=== PATIENT | female | born 1975 | race Caucasian/White ===

== ENCOUNTER 2017-11-17 10:10 | Outpatient (RCR) | payer MEDICAID | END 2018-01-09 | disposition home or self-care (01) | LOC: CR 10:10 | PROVIDERS: ATTEND Internal Medicine Interventional Cardiology | DX: Z48.812 Encounter for surgical aftercare following surgery on the circulatory system (principal); Z95.5 Presence of coronary angioplasty implant and graft | CPT/HCPCS: 93798 ==

== ENCOUNTER 2021-03-14 13:12 | Emergency (ER) | payer SELFPAY ==
[~2021-03-14] VITALS: Ht 162.6 cm; Wt 81.6 kg
--- OUTSIDE RECORDS SUMMARY | 2021-03-14 13:16 | XMS REPORT | Clinical Summary ---
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 If you d o not see the information that you expected, contact Release of Information in [facility] [employer] department at [phone] for further assistan ce in locating additional records.[facility] Allergies Comments Active Allergy Reactions Severity Noted Date Mother was allergic, so patient wants it listed as an allergy Penicillins SEE COMMENTS Low 06/27/2017 Medications End Date Status Medication Sig Dispensed Refills Start Date Active duloxetine DR (CYMBALTA) Take 30 mg by 0 30 mg capsule mouth daily. Total daily dose of 90mg. Active duloxetine DR (CYMBALTA) Take 60 mg by 0 60 mg capsule mouth daily. Total daily dose of 90mg. Active ALPRAZolam (XANAX) 0.5 mg Take 0.5 mg 0 tablet by mouth twice daily as needed for Anxiety. Active zolpidem (AMBIEN) 10 mg Take 10 mg by 0 tablet mouth at bedtime as needed for Sleep. Active vitamins, multiple tablet Take 1 tablet 0 by mouth daily. Active varenicline (CHANTIX) 0.5 Take one pill 10 tablet 0 mg tabIndications: per day for 2 8 smoking cessation more days, then one pill twice daily x4 days Indications: SMOKING CESSATION Active nitroglycerin (NITROSTAT) Place 1 25 tablet 3 0.4 mg tablet tablet under 8 tongue every 5 minutes as needed for Chest Pain. Max of 3 tablets, call 911. Active varenicline (CHANTIX) 1 Take 1 tablet 56 tablet 3 mg tablet by mouth 8 twice daily. Active varenicline (CHANTIX KEE) Take 0.5mg by 53 tablet 0 0.5 mg (11)- 1 mg (42) mouth daily 8 tablet for 3 days, then increase to 0.5mg by mouth twice daily for 4 days, then increase to 1mg by mouth twice daily Active senna (SENNA) 8.6 mg Take two 90 tablet 3 03/15 tablet tablets by 8 mouth at bedtime as needed for Constipation. Active aspirin EC 81 mg tablet Take one 90 tablet 3 tablet by 8 mouth daily. Take with food. Active atorvastatin (LIPITOR) 80 Take one 90 tablet 3 mg tablet tablet by 8 mouth daily. Active carvedilol (COREG) 12.5 Take one 180 tablet 3 mg tablet tablet by 8 mouth twice daily. Take with food. Active clopiDOGrel (PLAVIX) 75 TAKE 1 TABLET 90 tablet 1 mg tablet BY MOUTH ONCE 9 DAILY Active Problems Problem Noted Date Coronary artery disease involving ione coronary art brenda of ione heart 06/28/2017 Overview: Formatting of this note might be differ ent from the original. 06/27/17: STEMI/Cath - Hazy mid RCA lesio n, which based on OCT assessment demonstrated plaque rupture & acute thr ombus formation consistent with the culprit lesion for the inferior ST elev ations. Successful PCI of the large caliber mid right coronary artery with a 4.0 x 23 mm Xience Alpine drug-eluting stent Tobacco use disorder 06/28/2017 Mixed hyperlipidemia 06/28/2017 Obesity 06/28/2017 STEMI (ST elevation myocardial infarction) 8 Family History Medical History Relation Name Comments Cancer Father Coronary Artery Disease Father Pacemaker Father Renal problems Father Coronary Artery Disease Mother Heart Attack Mother Premature Heart Disease Mother Relation Name Status Comments Brother Alive Father Mother (Age 47) Social History Date Tobacco Use Types Packs/Day Years Used Current Every Day Smoker Cigarettes 0.5 29 Smokeless Tobacco: Never Used Comments Alcohol Use Standard Drinks/Week occas Yes 0 (1 standard drink = 0.6 o z pure alcohol) Alcohol Habits Answer Date Recorded How often do you have a drink containing alcohol? No t asked How many drinks containing alcohol do you have on No t asked a typical day when you are drinking? How often do you have six or more drinks on one Not asked occasion? Comment: silviano 08/23/2017 Sex Assigned at Date Recorded Not on file Last Filed Vital Signs Reading Time Taken Comments Vital Sign 122/76 03/15/2018 11:26 AM CDT Blood Pressure 85 03/15/2018 11:26 AM CDT Pulse 36.8 C (98.3 F) 06/28/2017 12:00 PM ARTS THERAPIST Temperature - - Respiratory Rate 98% 08/23/2017 10:17 AM ARTS THERAPIST Oxygen Saturation - - Inhaled Oxygen Concentration 95.5 kg (210 lb 8 oz) 03/15/2018 11:26 AM CDT Weight 162.6 cm (5' 4") 03/15/2018 11:26 AM CDT Height 36.13 03/15/2018 11:26 AM CDT Body Mass Index Plan of Treatment Health Maintenance Due Date Last Done Comments HIV SCREENING 1990 DTAP/TDAP VACCINES ( - 1993 Tdap) HEPATITIS C SCREENING 1993 PHYSICAL (COMPREHENSIVE) 1993 EXAM CERVICAL CANCER SCREENING 07/15/2013 07/15/2010 BREAST CANCER SCREENING 2015 INFLUENZA VACCINE 01/19/2021 Results Not on filefrom Last 3 Months Advance 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
[2021-03-14 13:20] VITALS: BP 121/72
--- NOTE | 2021-03-14 13:36 | ED General ---
General Chief Complaint: General Problems/Pain Stated Complaint: RT UPPR BODY/ARM PAIN Source of Information: Patient Exam Limitations: No Limitations History of Present Illness Date Seen by Provider: Mar 14, 2021 Time Seen by Provider: 13:15 Initial Comments Patient is a 46-year-old female with history of polysubstance abuse who presents with right arm redness swelling after injecting methamphetamines 1 week ago. She reports subjective fevers chills, urinary urgency frequency and dysuria. No nausea vomiting or sweats. No chest pain palpitations. No shortness of breath. No abdominal pain. No other acute symptoms or complaints. Patient has not been evaluated for this condition prior to today's ED visit Timing/Duration: 5-6 Days Severity: Moderate Modifying Factors: improves with Other Associated Systoms: Other Allergies and Home Medications Allergies Coded Allergies: Penicillins (Verified Allergy, Unknown, 03/14/21) morphine (Verified Allergy, Unknown, 03/14/21) Patient Home Medication List Home Medication List Reviewed: Yes Review of Systems Review of Systems Constitutional: see HPI EENTM: see HPI Respiratory: see HPI Cardiovascular: see HPI Gastrointestinal: see HPI Genitourinary: see HPI Musculoskeletal: see HPI Skin: see HPI Psychiatric/Neurological: See HPI Hematologic/Lymphatic: See HPI All Other Systems Reviewed Negative Unless Noted: Yes Past [id number] Hx Patient Social History Tobacco Use?: Yes Physical Exam Vital Signs Capillary Refill : Height, Weight, BMI Height: '" Weight: lbs. oz. kg; BMI Method: General Appearance: No Apparent Distress, WD/WN, Anxious Eyes: Bilateral Eye Normal Inspection, Bilateral Eye PERRL, Bilateral Eye EOMI HEENT: PERRL/EOMI, Normal ENT Inspection Neck: Normal Inspection, Non Tender, Supple Respiratory: Lungs Clear Cardiovascular: Regular Rate, Rhythm, No Gallop Gastrointestinal: Non Tender, Soft Back: Normal Inspection Neurologic/Psychiatric: Alert, Oriented x3, No Motor/Sensory Deficits Skin: Other (Right arm cellulitis) Focused Exam Sepsis Stage: Ruled Out Progress/Results/Core Measures Suspected Sepsis SIRS Temperature: Pulse: Respiratory Rate: Laboratory Tests 03/14/21 14:05: White Blood Count 12.9H Blood Pressure / Mean: Laboratory Tests 03/14/21 14:05: Platelet Count 239 Results/Orders Lab Results Laboratory Tests Test 03/14/21 13:25 9/24/21 14:05 Range/Units Urine Color DARK YELLOW Urine Clarity TURBID Urine pH 5.0 5-9 Urine Specific Emma 1.025 H 1.016-1.022 Urine Protein TRACE H NEGATIVE Urine Glucose (UA) TRACE H NEGATIVE Urine Ketones NEGATIVE NEGATIVE Urine Nitrite NEGATIVE NEGATIVE Urine Bilirubin 2+ H NEGATIVE Urine Urobilinogen 4.0 < = 1.0 MG/DL Urine Leukocyte Esterase NEGATIVE NEGATIVE Urine RBC (Auto) NEGATIVE NEGATIVE Urine RBC RARE /HPF Urine WBC 2-5 /HPF Urine Squamous Epithelial Cells 5-10 /HPF Urine Crystals NONE /LPF Urine Bacteria MODERATE H /HPF Urine Casts NONE /LPF Urine Mucus SMALL H /LPF Urine Culture Indicated YES Urine Opiates Screen NEGATIVE NEGATIVE Urine Oxycodone Screen NEGATIVE NEGATIVE Urine Methadone Screen NEGATIVE NEGATIVE Urine Propoxyphene Screen NEGATIVE NEGATIVE Urine Barbiturates Screen NEGATIVE NEGATIVE Ur Tricyclic Antidepressants Screen NEGATIVE NEGATIVE Urine Phencyclidine Screen NEGATIVE NEGATIVE Urine Amphetamines Screen POSITIVE H NEGATIVE Urine Methamphetamines Screen POSITIVE H NEGATIVE Urine Benzodiazepines Screen NEGATIVE NEGATIVE Urine Cocaine Screen NEGATIVE NEGATIVE Urine Cannabinoids Screen POSITIVE H NEGATIVE White Blood Count 12.9 H 4.3-11.0 10^3/uL Red Blood Count 4.37 3.80-5.11 10^6/uL Hemoglobin 14.2 11.5-16.0 g/dL Hematocrit 41 35-52 % Mean Corpuscular Volume 94 80-99 fL Mean Corpuscular Hemoglobin 32 25-34 pg Mean Corpuscular Hemoglobin Concent 35 32-36 g/dL Red Cell Distribution Width 13.1 10.0-14.5 % Platelet Count 239 130-400 10^3/uL Mean Platelet Volume 9.4 9.0-12.2 fL Immature Granulocyte % (Auto) 1 % Neutrophils (%) (Auto) 79 H 42-75 % Lymphocytes (%) (Auto) 14 12-44 % Monocytes (%) (Auto) 5 0-12 % Eosinophils (%) (Auto) 0 0-10 % Basophils (%) (Auto) 0 0-10 % Neutrophils # (Auto) 10.2 H 1.8-7.8 X 10^3 Lymphocytes # (Auto) 1.8 1.0-4.0 X 10^3 Monocytes # (Auto) 0.7 0.0-1.0 X 10^3 Eosinophils # (Auto) 0.0 0.0-0.3 10^3/uL Basophils # (Auto) 0.0 0.0-0.1 10^3/uL Immature Granulocyte # (Auto) 0.1 0.0-0.1 10^3/uL My Orders Orders - XIOMARA MANZANO DO Urinalysis (03/14/21 13:36) Drug Screen Stat (Urine) (03/14/21 13:36) Cbc With Automated Diff (03/14/21 13:36) Comprehensive Metabolic Panel (03/14/21 13:36) Urine Bedside (03/14/21 13:40) Urine Culture (03/14/21 13:25) Doxycycline Hyclate Tablet (Vibramycin T (03/14/21 14:30) Hydrocodone/Apap 5/325 Tablet (Lortab 5 (03/14/21 14:30) Vital Signs/I&O Capillary Refill : Departure Impression Primary Impression: Right forearm cellulitis Disposition: HOME, SELF-CARE Condition: Stable Departure-Patient Inst. Decision time for Depature: 14:35 Referrals: SELF,ELDA HANNAH (PCP/Family) Primary Care Physician Patient Instructions: Cellulitis (Skin Infection), Adult (DC) Add. Discharge Instructions: You were evaluated emergency department for right arm pain tenderness and swelling consistent with cellulitis or skin infection of right arm. Please take antibiotics and pain medications as directed. Follow-up with your therapist for mental health and outpatient drug rehab. Return to the ED if new or worsening symptoms. Follow-up with your PCP in 3 to 5 days for reevaluation. R All discharge instructions reviewed with patient and/or family. Voiced understanding. Scripts Hydrocodone/Acetaminophen (Hydrocodone-Acetamin 5-325 mg) 1 Each Tablet 1 TAB PO Q4H PRN for PAIN-MODERATE (5-7), #10 TAB Prov: XIOMARA MANZANO DO 03/14/21 Doxycycline Hyclate (Doxycycline Hyclate) 100 Mg Tablet 100 MG PO BID, #20 TAB 0 Refills Prov: XIOMARA MANZANO DO 03/14/21 XIOMARA MANZANO DO Mar 14, 2021 13:36
[2021-03-14 13:58] LABS: CLARITY,URINE TURBID; COLOR,URINE DARK YELLOW; GLUCOSE, URINE (UA) TRACE (NEGATIVE); KETONES,URINE NEGATIVE (NEGATIVE); NITRITE,URINE NEGATIVE (NEGATIVE); PROTEIN,URINE TRACE (NEGATIVE)
[2021-03-14 13:59] LABS: BACTERIA,URINE MODERATE /HPF; BILIRUBIN,URINE 2+ (NEGATIVE); LEUKOCYTE ESTERASE ,URINE NEGATIVE (NEGATIVE); RBC,URINE RARE /HPF
[2021-03-14 14:02] LABS: AMPHETAMINE SCREEN, URINE POSITIVE (NEGATIVE); BARBITURATE SCREEN URINE NEGATIVE (NEGATIVE); BENZODIAZEPINES SCREEN URINE NEGATIVE (NEGATIVE); CANNABINOID SCREEN, URINE POSITIVE (NEGATIVE); COCAINE SCREEN URINE NEGATIVE (NEGATIVE); METHADONE STAT NEGATIVE (NEGATIVE); METHAMPHETAMINE SCREEN URINE S POSITIVE (NEGATIVE); OPIATE SCREEN URINE NEGATIVE (NEGATIVE); OXYCODONE STAT NEGATIVE (NEGATIVE); PROPOXYPHENE STAT NEGATIVE (NEGATIVE); TRICYCLIC ANTIDEPRESSANTS SCRE NEGATIVE (NEGATIVE)
[2021-03-14 14:15] LABS: HEMATOCRIT 41 % (35-52); HEMOGLOBIN 14.2 g/dL (11.5-16.0); MEAN CORPUSCULAR HEMOGLOBIN 32 pg (25-34); MEAN CORPUSCULAR HGB CONC 35 g/dL (32-36); MEAN CORPUSCULAR VOLUME 94 fL (80-99); MEAN PLATELET VOLUME 9.4 fL (9.0-12.2); PLATELET COUNT 239 10^3/uL (130-400); WHITE BLOOD COUNT 12.9 10^3/uL (4.3-11.0)
[2021-03-14 14:16] LABS: BASOPHILS % (AUTO) 0 % (0-10); EOSINOPHILS % (AUTO) 0 % (0-10); LYMPHOCYTES % (AUTO) 14 % (12-44); MONOCYTES % (AUTO) 5 % (0-12); NEUTROPHILS # (AUTO) 10.2 X 10^3 (1.8-7.8); NEUTROPHILS % (AUTO) 79 % (42-75)
[2021-03-14 14:17] LABS: LYMPHOCYTES # (AUTO) 1.8 X 10^3 (1.0-4.0); MONOCYTES # (AUTO) 0.7 X 10^3 (0.0-1.0)
[2021-03-14] MEDS ORDERED: DOXYCYCLINE 100 MG (VIBRAMYCIN) TABLET PO ONE (14:30)
[2021-03-14] MEDS ORDERED: HYDROcodone/APAP 5 MG/325 MG (LORTAB) TAB PO ONE (14:30)
[2021-03-14 14:31] LABS: CREATININE SERUM 0.56 MG/DL (0.60-1.30); POTASSIUM 3.6 MMOL/L (3.6-5.0)
[2021-03-14 14:32] LABS: ALBUMIN 3.4 GM/DL (3.2-4.5); BILIRUBIN,TOTAL 1.7 MG/DL (0.1-1.0); CALCIUM 8.7 MG/DL (8.5-10.1); TOTAL PROTEIN 6.6 GM/DL (6.4-8.2)
[2021-03-14] MEDS ORDERED: DOXY100T2 PO (14:37)
[2021-03-14] MEDS ORDERED: ACHD5005 PO (14:37)
== END 2021-03-14 14:53 | disposition home or self-care (01) ==
LOC: EDUNIT# 13:12 → ER FS 13:13
DX: L03.113 Cellulitis of right upper limb (principal)
CPT/HCPCS: 36415; 80053; 80306; 81000; 85025; 87088; 99283

== ENCOUNTER 2022-11-23 01:08 | Emergency (ER) | payer SELFPAY ==
[~2022-11-23 01:08] MED LIST: ACHD5005 PO; DOXY100T2 PO
--- NOTE | 2022-11-23 01:18 | ED Chest Pain ---
General Stated Complaint: HEART ATTACK History of Present Illness Date Seen by Provider: Nov 23, 2022 Time Seen by Provider: 01:08 Initial Comments 47-year-old female with PMH of CAD with history of 1 stent 5 years back, on Plavix/HTN/fibromyalgia/active smoker, is brought in by EMS with complaints of left-sided chest pain which began today after she smoked marijuana. Patient had associated diaphoresis at the time. Patient took 2 nitros at home without any relief from her chest pain. Patient does not have any chest pain in the ER. Patient had initial nausea and was given Zofran by EMS prior to coming to ER. Patient also complains of heartburn and epigastric burning with some acid reflux around the time the chest pain began as well. Patient's symptoms denies palpitations, dizziness, shortness of breath, fever and chills, abdominal pain, diarrhea, nausea and vomiting. Allergies and Home Medications Allergies Coded Allergies: Penicillins (Verified Allergy, Unknown, 03/14/21) morphine (Verified Allergy, Unknown, 03/14/21) Patient Home Medication List Home Medication List Reviewed: Yes Doxycycline Hyclate (Doxycycline Hyclate) 100 Mg Tablet, 100 MG PO BID Prescribed by: XIOMARA MANZANO on 03/14/21 1437 Hydrocodone/Acetaminophen (Hydrocodone-Acetamin 5-325 mg) 1 Each Tablet, 1 TAB PO Q4H PRN for PAIN-MODERATE (5-7) Prescribed by: XIOMARA MANZANO on 03/14/21 1438 Review of Systems Review of Systems Constitutional: no symptoms reported EENTM: No Symptoms Reported Respiratory: No Symptoms Reported Cardiovascular: See HPI, Chest Pain Gastrointestinal: No Symptoms Reported Genitourinary: No Symptoms Reported Musculoskeletal: no symptoms reported Skin: no symptoms reported Psychiatric/Neurological: No Symptoms Reported Endocrine: No Symptoms Reported Hematologic/Lymphatic: No Symptoms Reported Physical Exam Vital Signs Vital Signs - First Documented 11/23/22 01:08 Pulse 81 Resp 18 B/P (MAP) 111/60 (77) Pulse Ox 97 Capillary Refill : Height, Weight, BMI Height: '" Weight: lbs. oz. kg; 30.00 BMI Method: General Appearance: No Apparent Distress, WD/WN HEENT: PERRL/EOMI Neck: Full Range of Motion Respiratory: Chest Non Tender, Lungs Clear, Normal Breath Sounds, No Accessory Muscle Use, No Respiratory Distress Cardiovascular: Regular Rate, Rhythm, No Edema, No JVD, Normal Peripheral Pulses Gastrointestinal: Normal Bowel Sounds, Non Tender, Soft Neurologic/Psychiatric: Alert, Oriented x3, Normal Mood/Affect Skin: Normal Color Progress/Results/Core Measures Results/Orders Lab Results Laboratory Tests Test 11/23/22 01:12 11/23/22 01:32 11/23/22 02:20 Range/Units White Blood Count 13.7 H 4.3-11.0 10^3/uL Red Blood Count 4.35 3.80-5.11 10^6/uL Hemoglobin 14.2 11.5-16.0 g/dL Hematocrit 41 35-52 % Mean Corpuscular Volume 94 80-99 fL Mean Corpuscular Hemoglobin 33 25-34 pg Mean Corpuscular Hemoglobin Concent 35 32-36 g/dL Red Cell Distribution Width 13.3 10.0-14.5 % Platelet Count 305 130-400 10^3/uL Mean Platelet Volume 9.8 9.0-12.2 fL Immature Granulocyte % (Auto) 0 % Neutrophils (%) (Auto) 62 42-75 % Lymphocytes (%) (Auto) 31 12-44 % Monocytes (%) (Auto) 6 0-12 % Eosinophils (%) (Auto) 0 0-10 % Basophils (%) (Auto) 1 0-10 % Neutrophils # (Auto) 8.5 H 1.8-7.8 10^3/uL Lymphocytes # (Auto) 4.3 H 1.0-4.0 10^3/uL Monocytes # (Auto) 0.8 0.0-1.0 10^3/uL Eosinophils # (Auto) 0.0 0.0-0.3 10^3/uL Basophils # (Auto) 0.1 0.0-0.1 10^3/uL Immature Granulocyte # (Auto) 0.0 0.0-0.1 10^3/uL Prothrombin Time 12.9 12.2-14.7 SEC INR Comment 0.9 0.8-1.4 Activated Partial Thromboplast Time 24 24-35 SEC Sodium Level 136 135-145 MMOL/L Potassium Level 3.9 3.6-5.0 MMOL/L Chloride Level 100 98-107 MMOL/L Carbon Dioxide Level 23 21-32 MMOL/L Anion Gap 13 5-14 MMOL/L Blood Urea Nitrogen 16 7-18 MG/DL Creatinine 1.11 0.60-1.30 MG/DL Estimat Glomerular Filtration Rate 62 BUN/Creatinine Ratio 14 Glucose Level 165 H 70-105 MG/DL Calcium Level 9.6 8.5-10.1 MG/DL Corrected Calcium 9.4 8.5-10.1 MG/DL Magnesium Level 1.9 1.6-2.4 MG/DL Total Bilirubin 0.6 0.1-1.0 MG/DL Aspartate Amino Transf (AST/SGOT) 16 5-34 U/L Alanine Aminotransferase (ALT/SGPT) 13 0-55 U/L Alkaline Phosphatase 61 40-136 U/L Troponin I < 0.30 <0.30 NG/ML Total Protein 7.0 6.4-8.2 GM/DL Albumin 4.3 3.2-4.5 GM/DL Serum Alcohol < 10 <10 MG/DL Urine Opiates Screen NEGATIVE NEGATIVE Urine Oxycodone Screen NEGATIVE NEGATIVE Urine Methadone Screen NEGATIVE NEGATIVE Urine Propoxyphene Screen NEGATIVE NEGATIVE Urine Barbiturates Screen NEGATIVE NEGATIVE Ur Tricyclic Antidepressants Screen NEGATIVE NEGATIVE Urine Phencyclidine Screen NEGATIVE NEGATIVE Urine Amphetamines Screen POSITIVE H NEGATIVE Urine Methamphetamines Screen POSITIVE H NEGATIVE Urine Benzodiazepines Screen NEGATIVE NEGATIVE Urine Cocaine Screen NEGATIVE NEGATIVE Urine Cannabinoids Screen POSITIVE H NEGATIVE My Orders Orders - HEIDI VALVERDE MD Cbc With Automated Diff (11/23/22 01:17) Magnesium (11/23/22 01:17) Chest 1 View Ap/Pa Only (11/23/22 01:17) Ekg Tracing (11/23/22 01:17) Comprehensive Metabolic Panel (11/23/22 01:17) Protime With Inr (11/23/22 01:17) Partial Thromboplastin Time (11/23/22 01:17) Monitor-Rhythm Ecg Trace Only (11/23/22 01:17) Aspirin Chewable Tablet (Baby Aspirin Ch (11/23/22 01:30) Ed Iv/Invasive Line Start (11/23/22 01:17) Troponin I Fs (11/23/22 01:17) Alcohol (11/23/22 01:18) Drug Screen Stat (Urine) (11/23/22 01:18) Aspirin Chewable Tablet (Baby Aspirin Ch (11/23/22 01:24) Troponin I Fs (11/23/22 02:18) Ekg Tracing (11/23/22 02:46) Medications Given in ED Current Medications Medications Dose Ordered Sig/Juan Diego Route Start Time Stop Time Status Last Admin Dose Admin Aspirin 324 mg ONCE ONCE PO 11/23/22 01:30 11/23/22 01:32 DC 11/23/22 01:25 324 MG Vital Signs/I&O 11/23/22 01:08 Pulse 81 Resp 18 B/P (MAP) 111/60 (77) Pulse Ox 97 Progress Progress Note : Progress Note 1. CHEST PAIN/ ACS RULED OUT: METHAMPHETAMINE AND MARIJUANA ABUSE - CXR: No acute changes - CBC/CMP: Unremarkable - UDS: Positive for marijuana and methamphetamine - Troponin x2: Undetectable -EKG x2: NSR, non-ischemic - ASA 324mg STAT in ER -Patient's chest pain is likely caused by methamphetamine and marijuana abuse. ACS has been ruled out with 2 troponins and 2 EKGs which are nonischemic -Advised to stop drug use and smoking -Advised to follow-up with PCP and cardiology within the next 3 to 7 days. Call to make appointment. -Return to ER if symptoms are worsening or do not resolve. -The patient was seen in the ED, and treated appropriately to presentation at a specific point in time. Patient is informed that there is a possibility that disease and illness can evolve and change in acuity rapidly or slowly after patient is discharged from the ER. Precautionary advice given to the patient for immediate return to ER if symptoms worsen or do not resolve, and to seek emergency care sooner rather than later. Pt also advised on the importance of PCP follow up and compliance with management and follow up plan with PCP and/or specialist, as this is part of the management plan. Pt verbally expressed understanding. Initial ECG Impression Date: Nov 23, 2022 Initial ECG Impression Time: 01:14 Initial ECG Rate: 77 Initial ECG Rhythm: Normal Sinus Initial ECG Intervals: Normal Initial ECG Impression: Normal Initial ECG Comparisson: No Previous ECG Available EKG : EKG Time: 02:51 Rate: 69 Rhythm: Normal Sinus Intervals: Normal ECG Comparisson: Unchanged ECG Impression: Normal Diagnostic Imaging Diagonstic Imaging: Xray Plain Films/CT/US/NM/MRI: chest Comments No acute changes Reviewed: Reviewed by Me Departure Impression Primary Impression: Ruled out for myocardial infarction Additional Impressions: Methamphetamine abuse Marijuana abuse Chest pain Disposition: HOME, SELF-CARE Condition: Stable Departure-Patient Inst. Referrals: ELDA FAJARDO MD (PCP/Family) Primary Care Physician Patient Instructions: Substance Misuse Treatment, Chest Pain That Is Not Caused by the Heart (DC), Drug Misuse and Addiction (DC), Cannabis use disorder Add. Discharge Instructions: -Advised to stop drug use and smoking -Advised to follow-up with PCP and cardiology within the next 3 to 7 days. Call to make appointment. -Return to ER if symptoms are worsening or do not resolve. HEIDI VALVERDE MD Nov 23, 2022 01:18
[2022-11-23] MEDS ORDERED: ASPIRIN 81 MG CHEW (CHILDREN'S ASA) ONE (01:24)
[2022-11-23 01:26] LABS: BASOPHILS # (AUTO) 0.1 10^3/uL (0.0-0.1); BASOPHILS % (AUTO) 1 % (0-10); EOSINOPHILS % (AUTO) 0 % (0-10); HEMATOCRIT 41 % (35-52); HEMOGLOBIN 14.2 g/dL (11.5-16.0); LYMPHOCYTES # (AUTO) 4.3 10^3/uL (1.0-4.0); LYMPHOCYTES % (AUTO) 31 % (12-44); MEAN CORPUSCULAR HEMOGLOBIN 33 pg (25-34); MEAN CORPUSCULAR HGB CONC 35 g/dL (32-36); MEAN CORPUSCULAR VOLUME 94 fL (80-99); MEAN PLATELET VOLUME 9.8 fL (9.0-12.2); MONOCYTES # (AUTO) 0.8 10^3/uL (0.0-1.0); MONOCYTES % (AUTO) 6 % (0-12); NEUTROPHILS # (AUTO) 8.5 10^3/uL (1.8-7.8); NEUTROPHILS % (AUTO) 62 % (42-75); PLATELET COUNT 305 10^3/uL (130-400); WHITE BLOOD COUNT 13.7 10^3/uL (4.3-11.0)
[2022-11-23] MEDS ORDERED: ASPIRIN 81 MG CHEW (CHILDREN'S ASA) PO ONE (01:30)
[2022-11-23 02:01] LABS: AMPHETAMINE SCREEN, URINE POSITIVE (NEGATIVE); BARBITURATE SCREEN URINE NEGATIVE (NEGATIVE); BENZODIAZEPINES SCREEN URINE NEGATIVE (NEGATIVE); CANNABINOID SCREEN, URINE POSITIVE (NEGATIVE); COCAINE SCREEN URINE NEGATIVE (NEGATIVE); METHADONE STAT NEGATIVE (NEGATIVE); OPIATE SCREEN URINE NEGATIVE (NEGATIVE); OXYCODONE STAT NEGATIVE (NEGATIVE); PROPOXYPHENE STAT NEGATIVE (NEGATIVE); TRICYCLIC ANTIDEPRESSANTS SCRE NEGATIVE (NEGATIVE)
[2022-11-23 02:06] LABS: ALANINE AMINOTRANSFERASE 13 U/L (0-55); ALKALINE PHOSPHATASE 61 U/L (40-136); BILIRUBIN,TOTAL 0.6 MG/DL (0.1-1.0); BUN/CREATININE RATIO 14; CALCIUM 9.6 MG/DL (8.5-10.1); CARBON DIOXIDE 23 MMOL/L (21-32); CHLORIDE 100 MMOL/L (98-107); CREATININE SERUM 1.11 MG/DL (0.60-1.30); GFR ESTIMATED 62; GLUCOSE 165 MG/DL (70-105); MAGNESIUM 1.9 MG/DL (1.6-2.4); POTASSIUM 3.9 MMOL/L (3.6-5.0); SODIUM 136 MMOL/L (135-145)
[2022-11-23 02:07] LABS: ALBUMIN 4.3 GM/DL (3.2-4.5)
[2022-11-23 02:08] LABS: INR 0.9 (0.8-1.4); PROTHROMBIN TIME PATIENT 12.9 SEC (12.2-14.7)
[2022-11-23 03:11] VITALS: BP 124/69
--- NOTE | 2022-11-23 04:52 | Diagnostic Imaging Report ---
INDICATION: Chest pain and shortness of breath COMPARISONS: None FINDINGS: Single view of the chest shows normal heart, pulmonary vasculature, pleura and diaphragms with no focal opacities. Soft tissues and visualized bony thorax are normal. IMPRESSION: No acute cardiopulmonary changes. Dictated by: Dictated on workstation # [id number]
== END 2022-11-23 03:17 | disposition home or self-care (01) ==
LOC: EDUNIT# 01:08 → ER FS 01:10
DX: R07.89 Other chest pain (principal); F15.10 Other stimulant abuse, uncomplicated; F12.10 Cannabis abuse, uncomplicated; I48.91 Unspecified atrial fibrillation; Z79.02 Long term (current) use of antithrombotics/antiplatelets; Z28.310 Unvaccinated for COVID-19
CPT/HCPCS: 36415; 71045; 80053; 80306; 83735; 84484; 85025; 85610; 85730; 93005; 93041; 99284; G0480; 80320